=== PATIENT | male | born 2000 | race Caucasian/White ===

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

== ENCOUNTER 2022-02-28 21:19 | Emergency (ER) | payer BC, SELFPAY ==
[2022-02-28 21:36] VITALS: BP 148/92; PULSE 80; RESP 16; TEMP 36.3; O2SAT 100
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
== END 2022-02-28 22:42 | disposition home or self-care (01) ==
PROVIDERS: Emergency Provider Nurse Practitioner Family
DX: S93.402A Sprain of unspecified ligament of left ankle, initial encounter (principal); S96.912A Strain of unspecified muscle and tendon at ankle and foot level, left foot, initial encounter; S90.32XA Contusion of left foot, initial encounter; S90.812A Abrasion, left foot, initial encounter; V86.55XA Driver of 3- or 4- wheeled all-terrain vehicle (ATV) injured in nontraffic accident, initial encounter
CPT/HCPCS: 73610; 73630; 99283

== ENCOUNTER 2023-02-23 19:54 | Emergency (ER) | payer BC, SELFPAY ==
--- NOTE | 2023-02-23 19:56 | XRR_ITS ---
PROCEDURE INFORMATION: Exam: XR Left Hip Exam date and time: 02/23/2023 8:02 PM Age: 22 years old Clinical indication: Hip pain; Left hip; Additional info: Injury TECHNIQUE: Imaging protocol: Radiologic exam of the left hip. Views: 2 or 3 views hip with pelvis when performed. COMPARISON: No relevant prior studies available. FINDINGS: Bones/joints: Unremarkable. No acute fracture. Soft tissues: Unremarkable. XR/XR hip LT 2-3V wo/w pel* [id number] IMPRESSION: No acute findings.
--- NOTE | 2023-02-23 19:56 | XRR_ITS ---
PROCEDURE INFORMATION: Exam: XR Right Hand Exam date and time: 02/23/2023 8:02 PM Age: 22 years old Clinical indication: Pain; Hand; Right; Additional info: Injury TECHNIQUE: Imaging protocol: Radiologic exam of the right hand. Views: 3 or more views. COMPARISON: No relevant prior studies available. FINDINGS: Bones/joints: Normal. Soft tissues: Normal. XR/XR hand RT min 3V* [id number] IMPRESSION: No acute findings.
[2023-02-23 20:07] VITALS: BP 159/89; PULSE 90; RESP 18; TEMP 36.8; O2SAT 99; BMI 26.6
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
[2023-02-23 20:57] VITALS: BP 120/87; PULSE 90; RESP 16
== END 2023-02-23 20:57 | disposition home or self-care (01) ==
PROVIDERS: Emergency Provider Emergency Medicine
DX: S60.221A Contusion of right hand, initial encounter (principal); S70.02XA Contusion of left hip, initial encounter; V86.59XA Driver of other special all-terrain or other off-road motor vehicle injured in nontraffic accident, initial encounter
CPT/HCPCS: 73130; 73502; 99284

== ENCOUNTER 2023-12-17 02:44 | Emergency (ER) | payer BC, SELFPAY ==
[2023-12-17 02:46] VITALS: BP 152/114; PULSE 75; RESP 16; TEMP 37.2; O2SAT 95; BMI 29.7
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
[2023-12-17 06:08] VITALS: BP 152/114; PULSE 75; RESP 16; TEMP 37.2; O2SAT 95
== END 2023-12-17 05:45 | disposition home or self-care (01) ==
PROVIDERS: Emergency Provider Emergency Medicine
DX: M25.511 Pain in right shoulder (principal); V86.59XA Driver of other special all-terrain or other off-road motor vehicle injured in nontraffic accident, initial encounter
CPT/HCPCS: 70450; 73030; 99284